=== PATIENT | male | born 1945 ===

== ENCOUNTER 2020-06-26 12:52 | Outpatient (REF) | payer MEDICARE, SELFPAY ==
--- NOTE | 2020-06-26 16:25 | MHC.AU.P13 ---
Adult Audiological Evaluation Date of Visit: 06/26/20 Reason for Appointment: Decreased hearing. Does patient feel they have a hearing loss?: Yes If Yes, Which Ear?: Both Ears Has hearing been tested previously?: Yes Previous Hearing Test Results: [facility], 10/18/19- Mild to moderate sensorineural hearing loss bilaterally. Hearing Handicap Inventory: HHIE SCORE: 6 Based on HHIE score, patient has: No perceived hearing handicap Ear History: Ear Infections in Childhood: Both Ears History of Ear Wax Buildup: Both Ears History of Occupational Noise Exposure: Yes: [employer], firearm use Medical History: Medical History: Measles Allergies: Neosporin Medication List: B-12, Vitamin D, Cialis Otoscopy: Right Ear: Clear canal, redness and retraction of the tympanic membrane Left Ear: Clear canal, redness of the tympanic membrane Tympanometry: Right Ear: Negative Middle Ear Pressure (Type C) Left Ear: Negative Middle Ear Pressure (Type C) Hearing Evaluation: Transducer(s) Used: Insert Earphones Bone Conduction Method: Conventional Audiometry Stimuli Used: Pure Tones Right Ear: Description of Hearing: Mild sensorineural hearing loss from 250-3000 Hz, sloping to a moderate sensorineural hearing loss at 4000 Hz, and rising to a mild hearing loss from 4816-3868 Hz. Left Ear: Description of Hearing: Mild sensorineural hearing loss from 250-4000 Hz, sloping to a moderate hearing loss at 6000 Hz, and rising to a mild hearing loss from at 8000 Hz. Speech Recognition Threshold (SRT): Method Used: Monitored Live Voice Stimuli Used: Spondee Words Right Ear: 30 dBHL Left Ear: 25 dBHL Word Discrimination: Method: Recorded Lists Word Lists Used: NU-6 Right Ear: 100% at 70 dBHL Left Ear: 100% at 70 dBHL Comparison: Compared to the most recent evaluation: Hearing is stable. Recommendations: Recommendations: Audiological re-evaluation if changes are noted. Audiological re-evaluation in one year. Hearing aid use is not indicated at this time. Recommendations (Other): If negative pressure and feelings of fullness persist, patient may benefit from a referral to otolaryngology. Diagnosis: Primary Diagnosis: H90.3 Bilateral Sensorineural Hearing Loss Secondary Diagnosis: H69.93 Unspecified Eustachian Tube Dysfunction, Bilateral Services Performed: Services Performed: Comprehensive Audiological Evaluation (CPT 39757) Tympanometry (CPT 81824) Signature: Provider: Lisa Dee, CCC-A
== END 2020-06-26 12:53 | disposition home or self-care (01) ==
LOC: HO.SH 12:52
PROVIDERS: PCP Internal Medicine; Visit Provider Internal Medicine
DX: H90.3 Sensorineural hearing loss, bilateral (principal); H69.93 Unspecified Eustachian tube disorder, bilateral
CPT/HCPCS: 92557; 92567